=== PATIENT | female | born 1985 | race Caucasian/White ===

== ENCOUNTER 2018-03-18 08:31 | Day surgery (SDC) | payer OTHER ==
[~2018-03-18 08:31] MED LIST: PROPOFOL 200 MG/20 ML VIAL As Ordered
[2018-03-18] MEDS: NS 1,000 ML IV (09:02)
== END 2018-03-18 10:30 | disposition home or self-care (01) ==
LOC: M OPP 10:30
DX: R93.3 Abnormal findings on diagnostic imaging of other parts of digestive tract (principal); D12.4 Benign neoplasm of descending colon; D12.7 Benign neoplasm of rectosigmoid junction; K64.8 Other hemorrhoids; R10.11 Right upper quadrant pain; K29.70 Gastritis, unspecified, without bleeding; K44.9 Diaphragmatic hernia without obstruction or gangrene; F41.9 Anxiety disorder, unspecified; L40.9 Psoriasis, unspecified; F17.210 Nicotine dependence, cigarettes, uncomplicated; Z79.899 Other long term (current) drug therapy
CPT/HCPCS: 45385

== ENCOUNTER → 2018-04-20 | Outpatient (CLI) | payer OTHER | LOC: M RAD 07:51 | DX: R10.11 Right upper quadrant pain (principal); R11.0 Nausea | CPT/HCPCS: J2805 ==

== ENCOUNTER → 2020-07-09 | Outpatient (CLI) | payer SELFPAY ==
[~2020-07-09] MED LIST changes: -PROPOFOL 200 MG/20 ML VIAL As Ordered; +STEL45IN IM
== END ==
LOC: M LABCAHC 18:50
PROVIDERS: ATTEND Pediatrics
DX: Z11.59 Encounter for screening for other viral diseases (principal)